=== PATIENT | female | born 1935 | race Caucasian/White ===

== ENCOUNTER 2022-01-26 20:15 | Emergency (ER) | payer BC, MEDICARE ==
[~2022-01-26] VITALS: Ht 165.1 cm; Wt 82.7 kg
--- NOTE | 2022-01-26 21:54 | PHYS DOC ---
Past Medical History Past Surgical History: Cholecystectomy Smoking Status: Never Smoker Alcohol Use: None General Adult EDM: Chief Complaint: MECHANICAL FALL HPI: HPI: Patient is a 86 year old female who presents with patient was coming down off of her porch with her cane around 1630 when she missed the last step and fell landing on her right side. Patient complains of right rib pain and right sided neck pain. She denies hitting her head, syncope, dizziness, headache, nausea, vomiting, abdominal pain, urinary symptoms, chest pain, shortness of air, numbness or tingling, focal weakness, vision change. She is not on any kind of blood thinner. Patient states that her son was able to get her back up and she was able to walk with her cane. Patient has a history of high cholesterol, hypertension and cholecystectomy. She rates her pain 7 out of 10. Review of Systems: Review of Systems: Constitutional: Denies fever or chills. [] Eyes: Denies change in visual acuity. [] HENT: Denies nasal congestion or sore throat. [] Respiratory: Denies cough or shortness of breath. [] Cardiovascular: Denies chest pain or edema. [] GI: Denies abdominal pain, nausea, vomiting, bloody stools or diarrhea. [] : Denies dysuria. [] Musculoskeletal: + Cervical back pain or denies joint pain. + Right ribs [] Integument: Denies rash. [] Neurologic: Denies headache, focal weakness or sensory changes. [] Endocrine: Denies polyuria or polydipsia. [] Lymphatic: Denies swollen glands. [] Psychiatric: Denies depression or anxiety. [] Heart Score: C/O Chest Pain: No Current Medications: Current Medications Medications (Trade) Dose Ordered Sig/Ingrid Start Time Stop Time Status Last Admin Dose Admin Acetaminophen/ Hydrocodone Bitart (Lortab 5/325) 1 tab 1X ONCE 01/26/22 22:00 01/26/22 22:01 Allergies: Allergies: Allergies Coded Allergies Type Severity Reaction Last Updated Verified benactyzine Allergy Intermediate 09/07/15 Yes gabapentin Allergy Intermediate 01/26/22 Yes Physical Exam: PE: Constitutional: Well developed, well nourished, no acute distress, non-toxic appearance. [] HENT: Normocephalic, atraumatic, bilateral external ears normal, oropharynx moist, no oral exudates, nose normal. [] Eyes: PERRLA, EOMI, conjunctiva normal, no discharge. [] Neck: Normal range of motion, no tenderness, supple, no stridor. [] Cardiovascular:Heart rate regular rhythm, no murmur [] Lungs & Thorax: Bilateral breath sounds clear to auscultation. Right ribs tenderness [] Abdomen: Bowel sounds normal, soft, no tenderness, no masses, no pulsatile masses. [] Skin: Warm, dry, no erythema, no rash. [] Back: Right cervical paraspinal tenderness, no CVA tenderness. [] Extremities: No tenderness, no cyanosis, no clubbing, ROM intact, no edema. [] Neurologic: Alert and oriented X 3, normal motor function, normal sensory function, no focal deficits noted. [] Psychologic: Affect normal, judgement normal, mood normal. [] Current Patient Data: Vital Signs: Vital Signs Date Time Temp Pulse Resp B/P (MAP) Pulse Ox O2 Delivery O2 Flow Rate FiO2 01/26/22 20:36 97.5 61 22 131/60 (83) 98 Room Air 97.5 EKG: EKG: [] Radiology/Procedures: Radiology/Procedures: [] Impression: [facility] [address] [place], [place] [id number] IMAGING REPORT Signed PATIENT: STEPHANIE LLANOS ACCOUNT: [id number] : 1935 LOCATION: ER AGE: 86 SEX: F EXAM STATUS: REG ER ORD. PHYSICIAN: CHAPARRO HOU APRN REASON: FALL, PAIN PROCEDURE: RIBS RIGHT AND PA CHEST XR RIBS MIN 3 VIEWS RT W/PA CHEST History: Reason: FALL, PAIN / Spl. Instructions: / History: Technique: A PA view the chest additional views of the right ribs. Comparison: None. Findings: No consolidation or pleural effusion. No pneumothorax. Normal heart size. Prior granulomatous disease within the chest. No displaced rib fractures. Impression: 1. No acute cardiopulmonary process. No displaced rib fractures. Electronically signed by: Luis Mike DO (01/26/2022 11:00 PM) [facility] DICTATED and SIGNED BY: LUIS MIKE DO DATE: 01/26/222550DES6 0 [facility] [address] [place] [address] IMAGING REPORT Signed PATIENT: STEPHANIE LLANOS ACCOUNT: [id number] : 1935 LOCATION: ER AGE: 86 SEX: F EXAM STATUS: REG ER ORD. PHYSICIAN: CHAPARRO HOU APRN REASON: FALL, PAIN PROCEDURE: CT HEAD AND CERVICAL SPINE WO EXAMINATION: CT head and cervical spine without IV contrast. INDICATION:86 years, Female, fall, pain. COMPARISON: None TECHNIQUE: Spiral acquisition of contiguous images from the skull base to the vertex were obtained. CT of the cervical spine was obtained using contiguous spiral imaging from the skull base to the upper thoracic level. Sagittal and coronal 2D reformatted series were provided by the technologist. Soft tissue and bone window algorithms were reviewed. Exposure: One or more of the following individualized dose reduction techniques were utilized for this examination: 1. Automated exposure control 2. Adjustment of the mA and/or kV according to patient size 3. Use of iterative reconstruction technique. FINDINGS: CT HEAD: Neither mass, midline shift, intracranial hemorrhage, acute/subacute ischemic changes, nor extraaxial fluid collections are seen. Mild brain parenchymal volume loss. Supratentorial periventricular white matter hypodensities, indeterminate but most likely representing chronic microangiopathic disease. The paranasal sinuses, mastoid air cells, and middle ears are clear. The orbital contents appear within normal limits. CT CERVICAL SPINE: Anatomic alignment of the cervical spine is maintained. Neither fracture, subluxation, nor traumatic spondylolisthesis is seen. The vertebral body heights are preserved. Severe multilevel degenerative changes in the spine. There is no evidence of a large intraspinal hematoma. The prevertebral and paravertebral soft tissues are within normal limits. IMPRESSION: 1. No acute intracranial abnormality. 2. No acute fracture of the cervical spine. Electronically signed by: Joe Vizcarra MD (01/26/2022 11:02 PM) [facility] DICTATED and SIGNED BY: JOE VIZCARRA MD DATE: 01/26/[id number] 0 Course & Med Decision Making: Course & Med Decision Making Pertinent Labs and Imaging studies reviewed. (See chart for details) See HPI. Alert and oriented x4. Speaks in full clear sentences. No focal bony spinal tenderness. Full range of motion of the neck. She has right paraspinal cervical tenderness with palpation. Right rib tenderness with palpation without crepitus or subcutaneous emphysema. Vital signs within normal limits. Lungs are clear to auscultation all lobes. Abdomen soft and nontender. No pain to the right hip with pelvic rock or palpation. No leg shortening or rotation. 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 No joint swelling or laxity or deformity. No bruising over the ribs or to the back. Radiology reports showed no acute findings. Patient got up with her cane was able to walk to the restroom with a steady gait. Patient states that she is good to go home and her daughter does live right next door. Patient refuses any hydrocodone and states that she will take her Tylenol at home. Patient states she will follow up with her primary care physician. She is given a incentive spirometer due to the rib pain. [] Dragon Disclaimer: Dragon Disclaimer: This electronic medical record was generated, in whole or in part, using a voice recognition dictation system. Departure Departure Impression: Primary Impression: Fall Qualified Codes: W19.XXXA - Unspecified fall, initial encounter Additional Impressions: Rib pain Back pain Qualified Codes: M54.50 - Low back pain, unspecified Disposition: 01 HOME / SELF CARE / HOMELESS Condition: STABLE Referrals: SHEYLA CALLE (PCP) Patient Instructions: Fall Prevention and Home Safety, Incentive Spirometer, Muscle Strain, Rib Contusion Additional Instructions: Follow-up with your primary care provider. Take your Tylenol at home for your pain. If at any point you are dizzy, begin having chest pain or shortness of breath or running a fever you can return to the emergency room. Use ice or heating pad to help with your pain. Rest. CHAPARRO HOU APRN Jan 26, 2022 21:54
[2022-01-26] MEDS ORDERED: HYDROcodone/APAP 5/325MG 1 TAB TABLET PO ONE (22:00)
--- NOTE | 2022-01-26 23:02 | RAD ---
XR RIBS MIN 3 VIEWS RT W/PA CHEST History: Reason: FALL, PAIN / Spl. Instructions: / History: Technique: A PA view the chest additional views of the right ribs. Comparison: None. Findings: No consolidation or pleural effusion. No pneumothorax. Normal heart size. Prior granulomatous disease within the chest. No displaced rib fractures. Impression: 1. No acute cardiopulmonary process. No displaced rib fractures. Electronically signed by: Luis Mike DO (01/26/2022 11:00 PM) [facility]
--- NOTE | 2022-01-26 23:05 | RAD ---
EXAMINATION: CT head and cervical spine without IV contrast. INDICATION:86 years, Female, fall, pain. COMPARISON: None TECHNIQUE: Spiral acquisition of contiguous images from the skull base to the vertex were obtained. C T of the cervical spine was obtained using contiguous spiral imaging from the skull base to the upper thoracic level. Sagittal and coronal 2D reformatted series were provided by the technologist. Soft t issue and bone window algorithms were reviewed. Exposure: One or more of the following individualized dose reduction techniques were utilized for thi s examination: 1. Automated exposure control 2. Adjustment of the mA and/or kV according to patient size 3. Use of iterative reconstruction technique. FINDINGS: CT HEAD: Neither mass, midline shift, intracranial hemorrhage, acute/subacute ischemic changes, nor extraaxial fluid collections are seen. Mild brain parenchymal volume loss. Supratentorial periventricular white matter hypodensities, indeterminate but most likely representing chronic microangiopathic disease. T he paranasal sinuses, mastoid air cells, and middle ears are clear. The orbital contents appear withi n normal limits. CT CERVICAL SPINE: Anatomic alignment of the cervical spine is maintained. Neither fracture, subluxation, nor traumatic spondylolisthesis is seen. The vertebral body heights are preserved. Severe multilevel degenerative c hanges in the spine. There is no evidence of a large intraspinal hematoma. The prevertebral and parav ertebral soft tissues are within normal limits. IMPRESSION: 1. No acute intracranial abnormality. 2. No acute fracture of the cervical spine. Electronically signed by: Annabella Vizcarra MD (01/26/2022 11:02 PM) [facility]
[2022-01-26 23:42] VITALS: BP 133/64
[2022-01-27 00:39] LABS: BILIRUBIN,URINE NEGATIVE (NEG); CLARITY,URINE CLEAR; COLOR,URINE YELLOW; NITRITE,URINE NEGATIVE (NEG); PH,URINE 5.5 (<5.0-8.0); PROTEIN,URINE NEGATIVE (NEG-TRACE); UROBILINOGEN,URINE 0.2 mg/dL (0.2 mg/dL)
[2022-01-27 00:44] LABS: BACTERIA,URINE MODERATE /HPF (0-FEW); RBC,URINE 0 /HPF (0-2)
== END 2022-01-27 00:50 | disposition home or self-care (01) ==
LOC: ER 20:15
DX: R07.81 Pleurodynia (principal); M54.50 Low back pain, unspecified; G89.11 Acute pain due to trauma; R51.9 Headache, unspecified; M54.2 Cervicalgia; Z90.49 Acquired absence of other specified parts of digestive tract; Z88.8 Allergy status to other drugs, medicaments and biological substances; W10.8XXA Fall (on) (from) other stairs and steps, initial encounter; Y93.89 Activity, other specified; Y92.89 Other specified places as the place of occurrence of the external cause; Y99.8 Other external cause status
CPT/HCPCS: 70450; 71101; 72125; 81001; 87086; 99285-25